=== PATIENT | female | born 1965 ===

== ENCOUNTER 2018-07-31 04:10 | Observation (INO) | payer OTHER, BC ==
[2018-07-31] VITALS (11 sets, daily range): BP systolic 92–137; BP diastolic 59–101
[~2018-07-31] VITALS: Ht 180.3 cm; Wt 93.9 kg
[~2018-07-31 04:10] MED LIST: CALC-1046; CHOL10005 PO; LORA-809 PO; SUMA50TA34 PO
[2018-07-31] MEDS ORDERED: ROPIVACAINE 0.2% 400 MG/200ML 250 ML CONINFUS ONE (10:30)
[2018-07-31] MEDS ORDERED: NORMOSOL R SOLN(*) 1000 ML BAG 1,000 ML IV PRN (10:30)
[2018-07-31] MEDS ORDERED: MIDAZOLAM 2 MG/2 ML VIAL IVP PRN (10:30)
[2018-07-31] MEDS ORDERED: CLINDAMYCIN 900 MG/D5W 50 ML 50 ML IVPB ONE (10:30)
[2018-07-31] MEDS ORDERED: ACETAMINOPHEN 500 MG TAB PO ONE (10:30)
[2018-07-31] MEDS ORDERED: PREGABALIN 150 MG CAPSULE PO ONE (10:30)
[2018-07-31] MEDS ORDERED: LIDOCAINE/SOD BICARB 8.4% SYR ID ONE (10:30)
[2018-07-31] MEDS ORDERED: TRANEXAMIC AC 1000 MG/10ML SDV 1,000 MG in DEXTROSE 5% 50 ML BAG 50 ML IV ONE (10:30)
[2018-07-31] MEDS ORDERED: FAMOTIDINE 20 MG TAB PO ONE (10:30)
[2018-07-31] MEDS ORDERED: CELECOXIB 200 MG CAP PO ONE (10:30)
[2018-07-31] MEDS ORDERED: cloNIDine EPIDUR INJ 100MCG/ML 40 MCG, ROPIVACAINE 0.5% 20 ML VIAL 25 ML, EPINEPHrine H... INJ ONE (10:30)
[2018-07-31] MEDS ORDERED: fentaNYL CITR 100 MCG/2 ML AMP ONE ×3 (11:14→15:27)
[2018-07-31] MEDS ORDERED: DEXAMETHASONE SOD PHOS 10MG/ML ONE (11:14)
[2018-07-31] MEDS ORDERED: ONDANSETRON 4 MG/2 ML VIAL ONE (11:14)
[2018-07-31] MEDS ORDERED: MIDAZOLAM 2 MG/2 ML VIAL ONE (11:14)
[2018-07-31] MEDS ORDERED: LIDOCAINE MPF 1% 5 ML VIAL ONE (11:14)
[2018-07-31] MEDS ORDERED: PROPOFOL EMUL(*) 10MG/ML 20 ML 20 ML ONE (11:14)
[2018-07-31] MEDS ORDERED: KETAMINE HCL 200 MG/20 ML MDV ONE (11:15)
[2018-07-31] MEDS ORDERED: BUPIV/EPI 0.25% 1:200,000 50ML INFIL ONE (11:34)
[2018-07-31] MEDS ORDERED: KETOROLAC 30 MG/ML VIAL ONE (14:45)
[2018-07-31] MEDS ORDERED: PROMETHAZINE 25 MG/ML 1 ML AMP ONE (15:45)
--- NOTE | 2018-07-31 15:49 | RADIOLOGY IMAGING REPORT ---
FACILITY: [facility] PATIENT NAME: Carmella Mcintosh : 1965 MR: [id number] V: [id number] EXAM DATE: ORDERING PHYSICIAN: [place] LEIGH TECHNOLOGIST: Location: [facility] Patient: Carmella Mcintosh : 1965 Visit/Account:[id number] Date of Sevice: 07/31/2018 Exam type: C-ARM FLUORO >1 HR History: RIGHT TOTAL ANKLE Comparison: None. Findings: 11 portable intraoperative C-arm spot views of the right ankle were submitted demonstrating assessmen t of a right total ankle arthroplasty. On the final image the arthroplasty appears in good anatomic alignment. The total continuous fluoroscopy dose was 0.01915 mGray per meter squared IMPRESSION: 1. As above Report Dictated By: Marivel Hess MD at 07/31/2018 3:43 PM Report E-Signed By: Marivel Hess MD at 07/31/2018 3:45 PM WSN:[email or web address]
[2018-07-31] MEDS ORDERED: ONDANSETRON 4 MG/2 ML VIAL IVP PRN (16:05)
[2018-07-31] MEDS ORDERED: MAGNESIUM HYDROXIDE* 30ML UDCP PO PRN (16:05)
[2018-07-31] MEDS ORDERED: BISACODYL 10 MG SUPP PR PRN (16:05)
[2018-07-31] MEDS ORDERED: KETOROLAC 30 MG/ML VIAL IVP PRN (16:05)
[2018-07-31] MEDS ORDERED: diphenhydrAMINE 25 MG CAP PO PRN (16:05)
[2018-07-31] MEDS ORDERED: ACETAMINOPHEN 500 MG TAB PO PRN (16:05)
[2018-07-31] MEDS ORDERED: MAGNESIUM CITRATE 300 ML BTL PO PRN (16:05)
[2018-07-31] MEDS ORDERED: PROMETHAZINE 25 MG/ML 1 ML AMP IVP PRN (16:05)
[2018-07-31] MEDS ORDERED: FLUSH 10 ML SYR IVP PRN (16:05)
[2018-07-31] MEDS ORDERED: KCL/D5LR 20 MEQ/1000 ML PREMIX 1,000 ML IV PRN (16:05)
[2018-07-31] MEDS: CLINDAMYCIN 900 MG/D5W 50 ML 50 ML IVPB SCH (19:36)
--- NOTE | 2018-07-31 23:31 | OPERATIVE REPORT 1 ---
EVENT DATE: July 31, 2018 SURGEON: Asim Fuller MD ANESTHESIOLOGIST: Partha Epperson MD ANESTHESIA: General. HIDE PULLER: Nilay Singer PA-C PREOPERATIVE DIAGNOSIS Severe degenerative arthrosis of the ankle. POSTOPERATIVE DIAGNOSIS Severe degenerative arthrosis of the ankle. PROCEDURE PERFORMED Total ankle replacement of the right side. ESTIMATED BLOOD LOSS Minimal. FLUID Minimal. DESCRIPTION OF OPERATION Patient was brought to the operating room and placed in the supine position. Bump placed under the right hip line. Right lower extremity was prepped and draped in the normal sterile fashion using Prevail, sterile stockinettes, sterile U-drape, and sterile extremity drape placed over the lower extremity. Stockinette was incised right above the knee and held with Coban. Esmarch was then used to exsanguinate the lower extremity. The tourniquet was turned up to 300 mmHg. The incision was made directly anterior and just lateral to the anterior tibialis tendon. Skin was incised with a 15 blade and dissected to the subcutaneous tissue. Subcutaneous tissue was bluntly dissected all the way down to the neurovascular bundle. Neurovascular bundle was identified and pushed laterally. The anterior tibialis tendon was pushed medially. Subperiosteal dissection was then done all around the ankle joint. There were marked osteophytes on the distal tibia and on the neck of the talus. After significant debridement of the osteophytes anteriorly both on the talus and tibia, I was able to use an osteotome and take it back to the tibial plafond on the distal tibia. Once that was done, I placed a small poke hole over the tibial tubercle, drilled, and then placed a large pin all the way down bicortically. I then placed a long alignment guide on, and we had the distal tibial sizing piece with the osteotome leveled directly at the tibial plafond. I then drilled the medial hole and then placed a pin in across the medial hole, checking laterally to make sure that this was parallel with the tibia. I then went 9 mm proximal on the alignment guide, brought fluoroscopy in, checked on the lateral and the AP to make sure we had good alignment varus/valgus with good alignment of the posterior slope. Once we felt we had a good position, we then put the distal sizing guide on, checked a zero and a 1, felt a 1 was the correct size, decided to make our cuts as a 1. We then placed the distal tibial cutting guide on the end, again brought fluoroscopy AP and lateral to make sure all the cuts looked to be within the appropriate position. We pinned both medially and laterally, placed two ribbon retractors medially and laterally, then made our distal tibial cut transverse, and then two side cuts using the oscillating saw. Once that was completed, I removed the distal tibial guide. I was able to remove most of the distal tibial cut out. There was still some posterior left which was okay. We then put our talar alignment jig on the distal tibial guide, put the foot in neutral position with varus/valgus, and then placed a pin across into the talar neck. Once that was done, we checked on fluoroscopy to make sure we had the talar cut in the appropriate position. Once that was in the appropriate position on lateral, we then took off all of the distal tibial guides and started with our talar guides using the paddles first, placing the paddles along the talar pin, and then placing two laminar spreaders both medially and laterally to hold it in the correct position, checked on AP and lateral, and found to have good alignment. Once there was good alignment, I pinned the talar cutting jig, and we cut distal talar cut. Once that distal talar cut was done appropriately, we then had to take down more osteophytes anteriorly. We then placed the anterior chamfer guide which took some significant removal of the anterior neck osteophytes again to get it in the right position, checked on lateral, and found to have a good position of that. We then pinned the anterior chamfer guide and then drilled our chamfer, removed the guide, rongeured the rest of the anterior chamfer off, then placed our distal tibial trial, and then placed the lateral chamfer guide. Once that was in the right position, we checked on fluoroscopy AP and lateral. I then pinned the distal talar guide and made our lateral chamfer cut. I made our epperson cut as well, holding it in the right position. Once those were done, I removed the distal talar lateral chamfer, used an osteotome, removed the rest of the lateral chamfer, anterior chamfer, got the rest of the posterior pieces out, and washed it out with normal saline. We trialed with a 1 distal tibia and a 1 talus, found that the distal tibia actually could be brought up to a 2, so we trialed a 2 distal tibia with a 1 talus, found to have excellent position, and we decided that that was our final combo. Therefore, we washed out everything, removed all the osteophytes, removed all the extra bone, and we drilled our distal tibial fin guide, two drill holes and a large alyx hole. Once that was done, we cleaned it out with a rongeur. Then, we placed our final distal tibial prosthesis using a 2 with an 8 mm poly and then a 1 distal talus, again checked on fluoroscopy AP and lateral, found to have excellent position, good alignment of the talus, and good alignment of the tibia with rotation and angulation. Therefore, we closed the retinaculum first using 2-0 Vicryl and used 3-0 Monocryl for the subcuticular, jacqueline for the skin, Adaptic, 4 x 4's, and a big, bulky Patrick dressing. Patient went to recovery. No complications. ANUP
[2018-08-01] VITALS: BP 91/61
[2018-08-01 01:00] VITALS: BP 93/61
[2018-08-01 04:14] VITALS: BP 90/55
[2018-08-01] MEDS: CLINDAMYCIN 900 MG/D5W 50 ML 50 ML IVPB SCH (04:37)
[2018-08-01 08:03] VITALS: BP 96/64
[2018-08-01 08:47] VITALS: Ht 180.3 cm; Wt 93.9 kg
== END 2018-08-01 10:31 | disposition home or self-care (01) ==
LOC: OR 04:10 → INTOOBSV 17:13 → MED 17:13
PROVIDERS: ADMIT Orthopaedic Surgery; ATTEND Orthopaedic Surgery
DX: M19.071 Primary osteoarthritis, right ankle and foot (principal); E11.9 Type 2 diabetes mellitus without complications
CPT/HCPCS: 27702; 36415; 36416; 76001; 76942; 82948; 85014; 85018; C1776; G0378; J1100; J1885; J2001; J2250; J2405; J2550; J2704; J2795; J3010; J3490; Q0163